=== PATIENT | male | born 1990 | race Hispanic/Latino ===

== ENCOUNTER 2018-07-12 16:12 | Emergency (ER) | payer OTHER, SELFPAY ==
[2018-07-12] MEDS ORDERED: Ketorolac Tromethamine 30 MG/ML VIAL ONE (17:07)
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
== END 2018-07-12 18:07 | disposition home or self-care (01) ==
LOC: ERS 16:12
DX: S39.012A Strain of muscle, fascia and tendon of lower back, initial encounter (principal); S60.511A Abrasion of right hand, initial encounter; V49.9XXA Car occupant (driver) (passenger) injured in unspecified traffic accident, initial encounter
CPT/HCPCS: 72072; 72100; 96372; J1885